=== PATIENT | male | born 1980 | race American Indian/Alaskan Native ===

== ENCOUNTER 2016-03-09 15:31 | Emergency (ER) | payer OTHER ==
[2016-03-09 16:01] VITALS: BP 113/81
[2016-03-09] MEDS ORDERED: MOTRIN ONE (18:13)
[2016-03-09] MEDS ORDERED: MOTRIN PO ONE (18:15)
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
== END 2016-03-09 19:28 | disposition home or self-care (01) ==
LOC: ED 15:31
DX: M25.531 Pain in right wrist (principal); M54.9 Dorsalgia, unspecified; M79.1 Myalgia; F12.10 Cannabis abuse, uncomplicated; V43.52XA Car driver injured in collision with other type car in traffic accident, initial encounter; Y93.9 Activity, unspecified; Y99.9 Unspecified external cause status; Y92.410 Unspecified street and highway as the place of occurrence of the external cause
CPT/HCPCS: 99283

== ENCOUNTER 2018-04-10 02:25 | Emergency (ER) | payer SELFPAY ==
[2018-04-10 04:09] LABS: Albumin 4.1 g/dL (3.9-5); Calcium 9.2 mg/dL (8.4-10.2)
[2018-04-10 04:55] LABS: Basophils # (Auto) 0.1 K/mm3 (0.0-0.1); Basophils % (Auto) 1.7 % (0.0-1.8); Eosinophils # (Auto) 0.1 K/mm3 (0.0-0.4); Eosinophils % (Auto) 1.5 % (0.0-4.3); Hematocrit 37.9 % (35.5-45.6); Hemoglobin 12.8 gm/dl (11.8-15.2); Lymphocytes # (Auto) 1.1 K/mm3 (1.2-5.4); Lymphocytes % (Auto) 27.9 % (13.4-35.0); Mean Corpuscular HGB Conc 34 % (32-34); Mean Corpuscular Hemoglobin 32 pg (28-32); Mean Corpuscular Volume 96 fl (84-94); Monocytes # (Auto) 0.4 K/mm3 (0.0-0.8); Monocytes % (Auto) 9.9 % (0.0-7.3); Platelet Count 249 K/mm3 (140-440); Red Blood Count 3.95 M/mm3 (3.65-5.03); Red Cell Distribution Width 13.5 % (13.2-15.2)
[2018-04-10] MEDS ORDERED: ZOFRAN ODT PO ONE (06:46)
[2018-04-10] MEDS ORDERED: ALUM-MAG HYDROX-SIMETH 200-200-20MG/5ML PO ONE (07:25)
--- NOTE | 2018-04-10 07:25 | Emergency Department Report ---
ED Abdominal Pain HPI - General Chief Complaint: Abdominal Pain Stated Complaint: ABD PAIN/FEVER Time Seen by Provider: 04/10/18 07:09 Source: patient Mode of arrival: Ambulatory Limitations: No Limitations - History of Present Illness Initial Comments: This is a 37-year-old male with no prior medical history who presents to ED complaining of generalized abdominal pain with some diarrhea initially started about a week ago. Patient states that he had some different types of food while he was away in [place]. Patient states he returned and started experiencing generalized abdominal aching with vomiting and diarrhea. Patient states of vomiting and resolves and diabetes mildly resolved but occasionally. Patient states he noticed some blood in his stool yesterday; to be evaluated. Patient is not expressing abdominal pain today. He denies nausea vomiting, fever. MD Complaint: abdominal pain Severity scale (0 -10): 4 - Related Data Previous Rx's Medication Instructions Recorded Last Taken Type Naproxen [Naprosyn TAB] 500 mg PO BID #20 tablet 03/09/16 Unknown Rx methOCARBAMOL [Robaxin TAB] 500 mg PO BID #20 tab 03/09/16 Unknown Rx Mag Hydrox/Aluminum Hyd/Simeth 15 ml PO TID #1 oral.susp 04/10/18 Unknown Rx [Maalox Advanced Suspension] Ondansetron [Zofran Odt] 4 mg PO Q8HR #12 tab.rapdis 04/10/18 Unknown Rx Allergies Allergy/AdvReac Type Severity Reaction Status Date / Time No Known Allergies Allergy Unverified 03/09/16 16:01 ED Review of Systems ROS: Stated complaint: ABD PAIN/FEVER Other details as noted in HPI Comment: All other systems reviewed and negative ED Past Medical Hx - Past Medical History Previous Medical History?: No - Surgical History Past Surgical History?: No - Social History Smoking Status: Never Smoker Substance Use Type: Marijuana - Medications Home Medications: Home Medications Medication Instructions Recorded Confirmed Last Taken Type Naproxen [Naprosyn TAB] 500 mg PO BID #20 tablet 03/09/16 Unknown Rx methOCARBAMOL [Robaxin TAB] 500 mg PO BID #20 tab 03/09/16 Unknown Rx Mag Hydrox/Aluminum Hyd/Simeth 15 ml PO TID #1 oral.susp 04/10/18 Unknown Rx [Maalox Advanced Suspension] Ondansetron [Zofran Odt] 4 mg PO Q8HR #12 tab.rapdis 04/10/18 Unknown Rx ED Physical Exam - General Limitations: No Limitations General appearance: alert, in no apparent distress - Head Head exam: Present: atraumatic, normocephalic - Eye Eye exam: Present: normal appearance - ENT ENT exam: Present: mucous membranes moist - Neck Neck exam: Present: normal inspection - Respiratory Respiratory exam: Present: normal lung sounds bilaterally. Absent: respiratory distress - Cardiovascular Cardiovascular Exam: Present: regular rate, normal rhythm. Absent: systolic murmur, diastolic murmur, rubs, gallop - GI/Abdominal GI/Abdominal exam: Present: soft, normal bowel sounds. Absent: distended, tenderness, guarding, rebound, mass, bruit - Rectal Rectal exam: Present: deferred - Extremities Exam Extremities exam: Present: normal inspection - Back Exam Back exam: Present: normal inspection - Neurological Exam Neurological exam: Present: alert, oriented X3 - Psychiatric Psychiatric exam: Present: normal affect, normal mood - Skin Skin exam: Present: warm, dry, intact, normal color. Absent: rash ED Course Vital Signs 04/10/18 04/10/18 04/10/18 02:56 07:35 07:48 Temperature 98.7 F Pulse Rate 56 L 58 L Respiratory 18 18 18 Rate Blood Pressure 102/60 Blood Pressure 108/60 [Right] O2 Sat by Pulse 100 98 Oximetry ED Medical Decision Making - Lab Data Result diagrams: 04/10/18 04:38 04/10/18 03:26 - Radiology Data Radiology results: report reviewed, image reviewed FINAL REPORT EXAM: XR ABDOMEN 1V AP HISTORY: abd pain COMPARISONS: None. FINDINGS: Two AP supine views of the abdomen and pelvis There are a couple of 2 centimeter oblong radiodensities projecting over the left pelvis. No pneumoperitoneum. Bowel gas pattern is nonobstructive. A 4 millimeter amorphous calcification projects at the peripheral region of the right kidney. The regional skeleton is unremarkable. IMPRESSION: No definite acute finding. Two oblong radiodensities project over the left pelvis, which may be external to the patient. Clinical correlation is requested. A 4 millimeter calcification projecting over the periphery of the right kidney may be genitourinary or gastrointestinal in origin. Transcribed By: MB Dictated By: NICHELLE ALVAREZ MD Electronically Authenticated By: NICHELLE ALVAREZ MD Signed Date/Time: 04/10/18 0729 - Medical Decision Making 37-year-old male presents with gastroenteritis from food toxin. There was no vomiting episode in the ED. Patient was medicated in the ED just feeling better. Abdominal x-rays shows no acute abdomen or obstruction. See reported above Discussed the patient to follow up with primary care physician as referred. Patient is able to speak in complete sentences he's in no acute distress. Critical care attestation.: If time is entered above; I have spent that time in minutes in the direct care of this critically ill patient, excluding procedure time. ED Disposition Clinical Impression: Gastroenteritis due to food toxin Disposition: DC-01 TO HOME OR SELFCARE Is pt being admited?: No Does the pt Need Aspirin: No Condition: Stable Instructions: Gastroenteritis (ED), Food Poisoning (ED) Additional Instructions: Make sure to follow up with the primary care physician as discussed. Take all your medications as you've been prescribed. If you have any worsening symptoms or develop new symptoms please return to ED immediately. Prescriptions: Mag Hydrox/Aluminum Hyd/Simeth [Maalox Advanced Suspension] 15 ml PO TID #1 oral.susp Ondansetron [Zofran Odt] 4 mg PO Q8HR #12 tab.rapdis Referrals: SALMA CUI MD [Primary Care Provider] - 3-5 Days [facility] [Provider Group] - 3-5 Days [facility] [Provider Group] - 3-5 Days [facility] [Provider Group] - 3-5 Days Forms: Work/School Release Form(ED) Time of Disposition: 08:23
[2018-04-10] MEDS ORDERED: TYLENOL PO ONE (07:26)
--- NOTE | 2018-04-10 07:29 | XRay Report ---
FINAL REPORT EXAM: XR ABDOMEN 1V AP HISTORY: abd pain COMPARISONS: None. FINDINGS: Two AP supine views of the abdomen and pelvis There are a couple of 2 centimeter oblong radiodensities projecting over the left pelvis. No pneumope ritoneum. Bowel gas pattern is nonobstructive. A 4 millimeter amorphous calcification projects at the peripheral region of the right kidney. The regional skeleton is unremarkable. IMPRESSION: No definite acute finding. Two oblong radiodensities project over the left pelvis, which may be exter nal to the patient. Clinical correlation is requested. A 4 millimeter calcification projecting over the periphery of the right kidney may be genitourinary o r gastrointestinal in origin.
[2018-04-10 07:41] LABS: Bilirubin,Urine NEG (Negative); Blood,Urine NEG (Negative); Color,Urine Yellow (Yellow); Mucus,Urine 1+ /HPF; Protein,Urine <15 mg/dL mg/dL (Negative); Urobilinogen,Urine < 2.0 mg/dL (<2.0)
[2018-04-10 07:48] VITALS: BP 108/60
== END 2018-04-10 08:34 | disposition home or self-care (01) ==
LOC: ED 02:25
DX: K52.1 Toxic gastroenteritis and colitis (principal); F12.10 Cannabis abuse, uncomplicated
CPT/HCPCS: 36415; 74018; 80053; 81001; 85025; Q0162